=== PATIENT | male | born 1940 ===

== ENCOUNTER 2017-10-18 06:20 | Day surgery (SDC) | payer MEDICARE, MEDICAID ==
[2017-10-17 09:51] VITALS: BMI 29.5
[2017-10-18] MEDS ORDERED: Iohexol 350mg/ml 100 ML ONE ×3 (08:35→09:10)
[2017-10-18] MEDS ORDERED: Midazolam 2 MG/2 ML VIAL ONE (08:45)
[2017-10-18] MEDS ORDERED: Nitroglycerin 50mg in D5W 50 MG/250 ML BOTTLE IV ONE (09:29)
[2017-10-18] MEDS ORDERED: Phenylephrine 10 mg/ml Inj ONE (09:35)
[2017-10-18] MEDS ORDERED: Iodixanol 320 MG/ML 100 ML BOTTLE IV ONE (09:39)
[2017-10-18] MEDS ORDERED: Sodium Chloride 0.9% 500 ML IV SCH (11:30)
--- NOTE | 2017-10-21 07:48 | CARDCATH ---
PROCEDURE DATE: 10/18/2017 PROCEDURES: 1. Left heart catheterization. 2. Coronary angiogram. 3. Saphenous vein graft angiogram. 4. Left internal mammary artery graft angiogram. 5. Aortogram. 6. Radiological supervision and radiological interpretation of the above mentioned procedures. CLINICAL INDICATIONS: 1. Exertional angina. 2. Abnormal stress test. 3. Hypertension. 4. Coronary artery disease, status post CABG in 2000. REFERRING PHYSICIAN: Dr. Sergey Hooper PERFORMING PHYSICIAN: Dr. Cliff Taylor PROCEDURE: After informed consent, the patient was prepped and draped in the usual sterile fashion. A 2% lidocaine was given in the right groin for local anesthesia. Using micropuncture technique, a 6-Ind[place]ian sheath was introduced into right common femoral artery. A JL4 6-Ind[place]ian diagnostic catheter engaged into left main coronary artery. Contrast injected and left coronary angiogram was performed. JR4 6-Ind[place]ian diagnostic catheter crossed into left ventricle. LV and diastolic pressure measured. Contrast injected and LV angiogram was done. Then the catheter was pulled back across the aortic valve. Gradient across aortic valve was measured. The catheter engaged into right coronary artery. Contrast injected and right coronary angiogram was performed. Then the same catheter was engaged into saphenous vein graft. Saphenous vein graft to right coronary artery angiogram was performed. IM catheter engaged into RAMIREZ graft. RAMIREZ to LAD graft angiogram was performed. Then Pigtail catheter was introduced into ascending aorta. Contrast injected and thoracic aortogram was performed. At the end of the procedure, the patient developed chest pain with a constant ST elevations, which got relieved with IV heparin and IV nitroglycerine. The patient became chest pain free within 5 minutes. Subsequent EKG revealed no acute ST-T changes. FINDINGS: 1. Left main coronary artery is patent. 2. Proximal LAD 100% occluded. 3. Left circumflex coronary artery is patent. 4. Right coronary artery is occluded 100% in the mid region. 5. Saphenous vein graft to RCA is patent 6. RAMIREZ to LAD graft is patent; however after the anastomosis, LAD is totally occluded. 7. LV ejection fraction is approximately 60% to 65%. No wall motion abnormalities noted. EDP of 21. No gradient across the aortic valve. 8. Ascending thoracic aorta appeared normal. CONCLUSION: 1. Coronary artery disease as described above. 2. SVG graft to RCA is patent. 3. Left circumflex coronary artery is patent. 4. RAMIREZ graft to LAD is patent; however, distal to the anastomosis of LAD is totally occluded. PLAN: Recommend aggressive medical management including aspirin, statins, beta-blockers as needed. Add calcium-channel blockers, nitrates, and Ranexa. Cliff Taylor MD
== END 2017-10-18 16:20 | disposition home or self-care (01) ==
LOC: C.CATHLAB 06:20
PROVIDERS: ATTEND Internal Medicine Cardiovascular Disease
DX: I25.10 Atherosclerotic heart disease of native coronary artery without angina pectoris (principal); Z95.1 Presence of aortocoronary bypass graft; I10 Essential (primary) hypertension
CPT/HCPCS: 93459; 93567; C1758; C1760; C1766; C1769; C1887; C1893; J1644; J2250; J3010; J7040; Q9967

== ENCOUNTER 2018-12-15 09:25 | Outpatient (CLI) | payer MEDICARE, MEDICAID | END 2018-12-15 09:26 | disposition home or self-care (01) | LOC: C.RADIC 09:25 | DX: I25.9 Chronic ischemic heart disease, unspecified (principal); R07.9 Chest pain, unspecified ==